=== PATIENT | female | born 1950 | race Caucasian/White ===

== ENCOUNTER 2017-10-31 05:35 | Day surgery (SDC) | payer MEDICARE, OTHER ==
[~2017-10-31] VITALS: Ht 160 cm; Wt 59.4 kg
[~2017-10-31 05:35] MED LIST: CALCIUM600 MG PO; CLARITIN10 M2 PO; EYE HEALTH ADU1 EACH PO; I-CAPS WITH LU1 EACH PO; LIPITOR20 MG PO; MELATONIN10 MG PO; OMEPRAZOLE20 MG PO; SERTRALINE HCL25 MG PO; SINGULAIR10 MG PO; VITAMIN E400 UNI1 PO
--- NOTE | 2017-10-31 08:44 | NUR ---
10/31/17 0844 Yaneth Fernandez 0837 PT ARRIVED TO PACU WITH EYES OPEN BUT VERY DROWSY, ON 10L VIA MASK, O2 SAT 100%. PT MAINTAIN OWN AIRWAY. RESP EVEN AND UNLABORED. 0838 O2 DECREASED TO 6L VIA MASK. 0839 PT DENIES NAUSEA AND PAIN. 0841 O2 REMOVED, O2 SAT 100%.
--- NOTE | 2017-10-31 09:35 | NUR ---
PT IS BACK TO DS FROM PACU. SHE IS REQUESTING WATER AND WANTING TO KNOW IF HER KNOWS THAT SHE IS OK. SHE HAS MINIMAL PAIN, NO NAUSEA. SHE CAME OVER ON 2L VIA NC. CALL LIGHT WITHIN REACH. WILL REASSES WITHIN THE HOUR.
[2017-10-31] MEDS ORDERED: OXYCODON-ACETA1 EAC2 PO (10:41)
[2017-10-31] MEDS ORDERED: MAPAP325 MG PO (10:42)
--- NOTE | 2017-10-31 11:13 | NUR ---
LE 0930: PT RETURNED FROM PACU, PT AWAKE TALKING WITH STAFF. REPORT GIVEN TO PERLITA, RN, REPORT RECV'D. IN TO CHECK ON PT, WATER AT BEDSIDE. ADVISED PT TO CALL WITH ANY NEEDS. LE 0956: PT CALLED, IN TO SEE PT. PT C/O 02/10 ABD PAIN. PT STATES SHE IS ALSO "SLIGHTLY NAUSEA." MORPHINE GIVEN FOR PAIN. ADVISED PT TO ATTEMPT TO REST. WET WAS CLOTH GIVEN. NO FURTHER NEEDS AT THIS TIME, CALL LIGHT IN REACH. AT BEDSIDE. LE 1008: PT CALLED, IN TO CHECK ON PT. PT NAUSEATED, ZOFRAN GIVEN. DISCUSSED PLAN FOR FURTHER NAUSEA WITH DOMINICK BARTH. NEW ORDERS SENT TO PHARMACY. NO FURTHER NEEDS AT THIS TIME. PT ATTEMPTING TO REST.
--- NOTE | 2017-10-31 11:18 | NUR ---
LE 1030: IN TO CHECK ON PT, VITALS OBTAINED. PT STATES PAIN AND NAUSEA ARE "A LITTLE BIT BETTER." PT DENIES FURTHER NEED FOR MEDICATINS AT THIS TIME. PT REPOSITIONED. NO FURTHER NEEDS, CALL LIGHT IN REACH. AT BEDSIDE.
--- NOTE | 2017-10-31 12:10 | NUR ---
LE 1125: IN TO CHECK ON PT, VITALS OBTAINED. PT ASSISTED UP TO RESTROOM, TOLERATED WELL. PT STATES " I AM JUST READY TO GO HOME." PT C/O 5/10 ABD PAIN, PAIN MEDICATION OFFERED, PT DECLINED. PT STATES SHE WOULD LIKE TO TAKE TYLENOL WHEN SHE GETS HOME. ADVISED PT TO TREAT PAIN WHEN HOME TO PREVENT INTRACTABLE PAIN. PT UNDERSTANDS. IV DC'D. PT STABLE ON FEET. ASSISTED WITH DRESSING BY . DC INSTRUCTIONS GIVEN, PT AMBULATES TO . WHEELED OUT OF DEPARTMENT TO WAITING CAR AND .
--- NOTE | 2017-11-02 12:47 | OR ---
[facility] [address] [place], [place] [address] Signed DATE OF OPERATION: 10/31/2017 SURGEON: Mega Mckay MD PREOPERATIVE DIAGNOSES: 1. Chronic calculous cholecystitis. 2. Nausea and weight loss. POSTOPERATIVE DIAGNOSES: 1. Chronic calculous cholecystitis. 2. Nausea and weight loss. PROCEDURES: 1. Laparoscopic cholecystectomy with intraoperative cholangiogram. 2. Surgeon-directed fluoroscopy. ANESTHESIA: General endotracheal; Mega Carter CRNA and local 10 mL of 0.25% Marcaine with epinephrine. INDICATION: This 66-year-old white woman was urgently referred by Dr. Alberto on 10/23/2017 with progressive weight loss, nausea, and poor appetite. Evaluation included a gallbladder ultrasound, which showed a 28 mm gallstone. Upon examination, the patient really had no complaints of pain or tenderness, only poor appetite and weight loss issues. She was noted to have an elevated ammonia level, which was not easily explained. A CT scan was performed under my direction, which showed a normal-appearing liver and no sign of neoplasm or other cause of her appetite loss. She is considered probable to have nausea and poor oral intake related to her gallbladder and chronic cholecystitis related to the gallstone. She is admitted at this time to undergo cholecystectomy preferably by laparoscopic method, understanding the risks of bleeding, infection, bile duct injury, need for open procedure, and of course failure to cure her symptoms. Understands that she wished to proceed. FINDINGS: The gallbladder was chronically inflamed. The liver showed no sign of cirrhotic changes. There is mild fatty infiltration of the liver. There was no carcinomatosis or other abnormality. The gallbladder once excised showed chronic inflammatory change of the mucosa and the gallbladder was approximately 3 cm in size, dark and relatively Electronically Signed By: MEGA MCKAY MD 11/02/17 1247 PATIENT NAME: MARK BARNETT OPERATIVE REPORT DATE OF : 46 REPORT #: [id number] PHYSICIAN: MEGA MCKAY MD PCP: MEGA MCKAY MD REPORT IS CONFIDENTIAL AND NOT TO BE RELEASED WITHOUT AUTHORIZATION [facility] [address] [place], [place] [address] Signed smooth. Cholangiogram was normal. DESCRIPTION OF PROCEDURE: The patient was brought to the operating room, given a general endotracheal anesthetic. Preoperative antibiotic Ancef was given. Sequential compression device stockings were used and heparin subcutaneously administered. The abdomen was prepared with a chlorhexidine solution and draped sterilely. An infraumbilical incision was made and using an open Kasia cannula technique, pneumoperitoneum was achieved to a level of 14 mmHg of carbon dioxide gas. Intraabdominal inspection showed no sign of ascites or carcinomatosis. The liver did not appear cirrhotic. There was some fatty infiltration noted, however. The gallbladder was obscured from view initially. Three additional trocars were placed in usual configuration in the subxiphoid, right midclavicular, and right anterior axillary line. The gallbladder was then revealed and found to be whitish in appearance, chronically inflamed. It was elevated cephalad and retracted laterally. Using blunt and electrocautery dissection, the triangle of Calot was dissected free, ultimately identifying well the cystic duct and cystic arterial branches. A clip was applied across gallbladder cystic duct junction and a transverse choledochotomy made in the cystic duct. Egress of clear bile was noted. Using the Jung-type cholangiocatheter, intraoperative cholangiography was undertaken showing free flow of contrast in biliary tree with prompt emptying into the duodenum. There was no evidence of biliary obstruction. There was no filling defect or biliary anomaly. The catheter was removed and the cystic duct was triply clipped and divided and the gallbladder was dissected free in a retrograde fashion using electrocautery. The gallbladder was placed in an Endobag and extracted through the infraumbilical port site without problem. The gallbladder was opened on the back table and found to have a thinned chronically inflamed white-appearing mucosa. No sign of neoplasm and a large dark smooth 3 cm gallstone. Irrigation was undertaken in subhepatic space. There was no sign of bile leak, bleeding, or other problems. Excess irrigation fluid was suctioned free. The trocars were removed under direct visualization showing no sign of bleeding. The infraumbilical fascial incision was reapproximated with interrupted 0 Vicryl suture. All wounds were infiltrated with 0.25% Marcaine with epinephrine for postoperative analgesic effect. Irrigation was undertaken. Skin was closed with interrupted 3-0 Vicryl. Steri-Strips were applied. The patient was ultimately extubated and transported to recovery room in good condition having suffered no complications. Sponge, needle, and instrument counts reported as correct x3. Electronically Signed By: MEGA MCKAY MD 11/02/17 1247 PATIENT NAME: MARK BARNETT OPERATIVE REPORT DATE OF : 46 REPORT #: [id number] PHYSICIAN: MEGA MCKAY MD PCP: MEGA MCKAY MD REPORT IS CONFIDENTIAL AND NOT TO BE RELEASED WITHOUT AUTHORIZATION [address], [place] [address] Signed Mega Mckay MD JM/MODL /[id number] cc: Steph Alberto MD Copies: STEPH ALBERTO MD ~ Electronically Signed By: MEGA MCKAY MD 11/02/17 1247 PATIENT NAME: ERICKAMARK LEE OPERATIVE REPORT DATE OF : 46 REPORT #: [id number] PHYSICIAN: MEGA MCKAY MD PCP: MEGA MCKAY MD REPORT IS CONFIDENTIAL AND NOT TO BE RELEASED WITHOUT AUTHORIZATION
== END 2017-10-31 11:40 | disposition home or self-care (01) ==
LOC: DS 05:35
PROVIDERS: Surgery
PROC: BF13YZZ Fluoroscopy of Gallbladder and Bile Ducts using Other Contrast (ICD-10-PCS; 2017-10-31)
PROC: 0FT44ZZ Resection of Gallbladder, Percutaneous Endoscopic Approach (ICD-10-PCS; principal; 2017-10-31 06:45)
DX: K80.10 Calculus of gallbladder with chronic cholecystitis without obstruction (principal); K21.9 Gastro-esophageal reflux disease without esophagitis; G89.29 Other chronic pain; F32.9 Major depressive disorder, single episode, unspecified; F12.90 Cannabis use, unspecified, uncomplicated; Z79.899 Other long term (current) drug therapy; Z87.891 Personal history of nicotine dependence; Z88.5 Allergy status to narcotic agent; Z88.8 Allergy status to other drugs, medicaments and biological substances
CPT/HCPCS: 00790; 74300; 80048; 88304; J0330; J0690; J1100; J1644; J1885; J2250; J2270; J2405; J2704; J2710; J2765; J3010; J7120; Q9967

== ENCOUNTER 2021-05-03 17:22 | Emergency (ER) | payer MEDICARE, OTHER ==
[~2021-05-03] VITALS: Ht 160 cm; Wt 56.7 kg
[~2021-05-03 17:22] MED LIST changes: +CITALOPRAM HBR40 MG PO; +GABAPENTIN300 MG PO; +MAPAP325 MG PO; +METHOCARBAMOL750 MG PO; +OXYCODON-ACETA1 EAC2 PO; +OXYCODONE HCL5 MG PO; +PERCOCET 5-3251 EACH PO; +PROAIR HFA8.5 GM INH; +SENNA LAX8.6 MG PO
--- NOTE | 2021-05-04 07:16 | EKG ---
[facility] [address] [facility] [place], [place] [address] Signed Normal sinus rhythm Normal ECG When compared with ECG of 27-OCT-2018 16:38, No significant change was found Confirmed by JARAD COOK MD ([id number]) on 05/04/2021 7:16:31 AM Electronically Signed By: JARAD COOK MD 05/04/21 0716 PATIENT NAME: MARK BARNETT PETAR Electrocardiogram DATE OF : 46 PHYSICIAN: JARAD COOK MD REPORT #: [id number] REPORT IS CONFIDENTIAL AND NOT TO BE RELEASED WITHOUT AUTHORIZATION
== END 2021-05-03 19:33 | disposition home or self-care (01) ==
LOC: ED 17:22
DX: R07.89 Other chest pain (principal); J45.909 Unspecified asthma, uncomplicated; F17.200 Nicotine dependence, unspecified, uncomplicated; Z88.6 Allergy status to analgesic agent; Z79.899 Other long term (current) drug therapy
CPT/HCPCS: 80053; 83735; 84484; 85025; 93005; 93010; 99285-25

== ENCOUNTER 2021-09-04 14:49 | Emergency (ER) | payer MEDICARE, OTHER ==
[~2021-09-04] VITALS: Ht 160 cm; Wt 56.8 kg
--- NOTE | 2021-09-06 18:51 | EKG ---
[facility] [address] [place] [address] Signed Sinus bradycardia Low voltage QRS Borderline ECG When compared with ECG of 03-MAY-2021 17:27, No significant change was found Confirmed by MALIKA JONES MD ([id number]) on 09/06/2021 6:51:43 PM Electronically Signed By: MALIKA JONES MD 09/06/211850 PATIENT NAME: BARNETTMARK Electrocardiogram DATE OF : 46 PHYSICIAN: MALIKA JONES MD REPORT #: [id number] REPORT IS CONFIDENTIAL AND NOT TO BE RELEASED WITHOUT AUTHORIZATION
== END 2021-09-04 21:35 | disposition home or self-care (01) ==
LOC: ED 14:49
DX: G45.9 Transient cerebral ischemic attack, unspecified (principal); I10 Essential (primary) hypertension; E78.5 Hyperlipidemia, unspecified; J45.909 Unspecified asthma, uncomplicated; F17.200 Nicotine dependence, unspecified, uncomplicated; Z20.822 Contact with and (suspected) exposure to COVID-19; Z88.8 Allergy status to other drugs, medicaments and biological substances
CPT/HCPCS: 36415; 70450; 70496; 70498; 71045; 80053; 81001; 84484; 85025; 85610; 85730; 99285-25; C9803; Q9967; U0003

== ENCOUNTER 2024-08-15 18:30 | Emergency (ER) | payer OTHER, MEDICARE ==
[~2024-08-15] VITALS: Ht 160 cm; Wt 59.9 kg
[2024-08-15] MEDS ORDERED: DONEPEZIL HCL5 MG PO (19:01)
[2024-08-15 20:43] LABS: BASOPHILS 1.3 % (0-2); HEMATOCRIT 43.1 % (35.0-50.0); HEMOGLOBIN 14.5 g/dL (12.0-18.0); LYMPHOCYTES 14.2 % (24-44); MCH 29.8 (27-36); MCHC 33.6 g/dl (30-36); MCV 88.6 fl (81-99); MONOCYTES 6.7 % (0-12); NEUTROPHILS 76.8 % (39-80); PLATELET COUNT 281 K/uL (140-440); RBC 4.87 M/ul (4.3-5.7); RDW 14.2 (10.5-15.0)
[2024-08-15 21:11] LABS: ALBUMIN 3.5 g/dL (3.4-5.0); ALCOHOL, MEDICAL <3 ng/dL (<3); ALKALINE PHOSPHATASE 66 U/L (46-116); ALT (SGPT) 11 U/L (14-59); ANION GAP 9.1 (7-21); AST (SGOT) 11 U/L (15-37); BILIRUBIN, TOTAL 0.8 ng/dL (0.2-1.0); BUN/CREATININE RATIO 14.14 (6.0-28.6); CARBON DIOXIDE 32 mmol/L (21-32); CHLORIDE 103 mmol/L (98-107); CREATININE, SERUM 0.99 mg/dL (0.55-1.02); GLOMERULAR FILTRATION RATE,EST 59 mL/min (>60); POTASSIUM 4.1 mmol/L (3.5-5.1); UREA NITROGEN 14 mg/dL (7-18)
[2024-08-15 21:11] LABS: BILIRUBIN, URINE NEGATIVE (negative); BLOOD/HGB, URINE TRACE-I (Negative); KETONE, URINE NEGATIVE (Negative); LEUK ESTERASE, URINE NEGATIVE (negative); NITRITE, URINE NEGATIVE (negative)
[2024-08-15 21:25] LABS: AMPHETAMINES, URINE NEGATIVE (NEGATIVE); BARBITURATES, URINE NEGATIVE (NEGATIVE); BENZODIAZEPINE, URINE NEGATIVE (NEGATIVE); BUPRENORPHINE, URINE NEGATIVE (NEGATIVE); CANNABINOID, URINE NEGATIVE (NEGATIVE); COCAINE, URINE NEGATIVE (NEGATIVE); ECSTASY, URINE NEGATIVE (NEGATIVE); FENTANYL, URINE NEGATIVE (NEGATIVE); METHADONE, URINE NEGATIVE (NEGATIVE); OPIATES, URINE NEGATIVE (NEGATIVE); OXYCODONE, URINE NEGATIVE (NEGATIVE); PHENCYCLIDINE, URINE NEGATIVE (NEGATIVE)
[2024-08-15 21:28] LABS: BACTERIA, URINE 1+ /hpf (negative); CRYSTALS, URINE NONE SEEN (0-1+); EPITHELIAL CELLS, URINE SQUAMOUS 2+ /lpf (0-1+)
[2024-08-15 21:29] LABS: CASTS, URINE NONE SEEN \\lpf; COLLECTION TYPE, URINE CLEAN CATCH; REFLEX CULTURE, URINE No (No)
[2024-08-15 22:57] VITALS: BP 136/69
--- NOTE | 2024-08-20 10:05 | EKG ---
[facility] [address] [facility] [place] [address] Signed Normal sinus rhythm Low voltage QRS Borderline ECG When compared with ECG of 04-SEP-2021 17:00, No significant change was found Confirmed by Negrito Mobley DO ([id number]) on 08/20/2024 10:05:24 AM Electronically Signed By: NEGRITO MOBLEY DO 08/20/24 1005 PATIENT NAME: MARK BARNETT Electrocardiogram DATE OF : 46 PHYSICIAN: NEGRITO MOBLEY DO REPORT #: [id number] REPORT IS CONFIDENTIAL AND NOT TO BE RELEASED WITHOUT AUTHORIZATION
== END 2024-08-15 22:57 | disposition home or self-care (01) ==
LOC: ED 18:30
PROVIDERS: Internal Medicine
DX: Z04.3 Encounter for examination and observation following other accident (principal); J45.998 Other asthma; Z79.899 Other long term (current) drug therapy
CPT/HCPCS: 36415; 70450; 71045; 80053; 80307; 81001; 83880; 84484; 85025; 93005; 93010; 99284-25; G0480